=== PATIENT | female | born 1995 | race Two or more races ===

== ENCOUNTER 2022-08-31 00:10 | Emergency (ER) | payer MEDICAID ==
[~2022-08-31] VITALS: Ht 170.2 cm; Wt 61.2 kg
[2022-08-31 01:05] LABS: ABG BASE EXCESS -0.3 mmol/L; ABG PCO2 37.6 mmHg (35.0-45.0); ABG PH 7.422 (7.350-7.450); COHb 0.3 % (0.5-1.5); MetHb 1.8 % (0.0-1.5); O2Hb 23.6 % (94.0-97.0); SITE, ABG Left Brachial; VENT MODE, BG ROOM AIR
[2022-08-31 03:22] LABS: ABG BASE EXCESS -0.3 mmol/L; ABG PO2 17.2 mmHg (75.0-100.0); COHb 0.3 % (0.5-1.5); MetHb 2.1 % (0.0-1.5); O2Hb 22.4 % (94.0-97.0); SITE, ABG Left Brachial; VENT MODE, BG ROOM AIR
[2022-08-31 05:29] LABS: ABG BASE EXCESS -3.6 mmol/L; ABG PCO2 33.2 mmHg (35.0-45.0); ABG PH 7.407 (7.350-7.450); ABG PO2 49.3 mmHg (75.0-100.0); COHb 0.3 % (0.5-1.5); MetHb 0.4 % (0.0-1.5); O2Hb 82.9 % (94.0-97.0); SITE, ABG Other; VENT MODE, BG HFNC 100%
[2022-08-31 08:02] LABS: ABG BASE EXCESS -2.5 mmol/L; ABG PCO2 34.2 mmHg (35.0-45.0); ABG PH 7.417 (7.350-7.450); ABG PO2 20.3 mmHg (75.0-100.0); COHb 0.3 % (0.5-1.5); MetHb 1.2 % (0.0-1.5); O2Hb 29.7 % (94.0-97.0); SITE, ABG Other; VENT MODE, BG 30L 100% HFNC
[2022-08-31 08:34] VITALS: BP 118/70
== END 2022-08-31 08:35 | disposition home or self-care (01) ==
LOC: ER 00:13
DX: T58.91XA Toxic effect of carbon monoxide from unspecified source, accidental (unintentional), initial encounter (principal); Z60.2 Problems related to living alone; V93.89XA Other injury due to other accident on board unspecified watercraft, initial encounter; Y93.89 Activity, other specified; Y92.89 Other specified places as the place of occurrence of the external cause; Y99.8 Other external cause status
CPT/HCPCS: 36600; 82803-TC